=== PATIENT | female | born 1990 | race Two or more races ===

== ENCOUNTER 2024-08-14 14:02 | Outpatient (CLI) | payer MEDICAID | END 2024-08-14 23:59 | disposition home or self-care (01) | LOC: US 14:02 | PROVIDERS: ATTEND Nurse Practitioner Family | DX: N83.8 Other noninflammatory disorders of ovary, fallopian tube and broad ligament (principal); N94.6 Dysmenorrhea, unspecified; R10.2 Pelvic and perineal pain | CPT/HCPCS: 76856; 93976 ==